=== PATIENT | female | born 1975 | race Caucasian/White ===

== ENCOUNTER 2016-12-15 10:28 | Emergency (ER) | payer BC ==
[2016-12-15 10:36] VITALS: BP 103/59
--- NOTE | 2016-12-15 11:30 | UC ---
Yo Mortensen Rebecca, scribed for Cony Cunningham MD on 12/15/16 at 1039 . Abdominal Pain Female HPI - HPI Summary HPI Summary: Pt is a 41 y/o F who presents to [facility] c/o LUQ abdominal pain without radiation. Pain began last night while she was sleeping, unsure of the exact time. Pain has been intermittent since onset, lasting a minute or less per episode. Today, sx seem to be occurring less frequently. Pain is currently not present, though when present it is characterized as a sharp, severe pain. Sx aggravated by movement, alleviated by pressure. When she takes a deep breath it feels similar to "when your muscles are sore from exercising" but does not cause sx. Additionally c/o nausea (yesterday) and being "gassy" last night. No recent physical activity or strain. Last BM yesterday which was normal. LNMP 3 weeks ago. PMHx GERD - takes Pepcid. FHx hiatal hernia (father), diverticulitis (grandfather), appendix on the wrong side (father). Decreased appetite yesterday, took the bus home from [facility]. Travelling to [place] tomorrow; concerned about long drive at this time. - History of Current Complaint Chief Complaint: UCAbdominalPain Stated Complaint: ABD PAIN Time Seen by Provider: 12/15/16 10:37 Hx Obtained From: Patient Hx Last Menstrual Period: 11/30/16 Onset/Duration: Lasting Hours - Began last night Timing: Intermittent Episodes Lasting: - A minute or less Severity Initially: Severe Severity Currently: None Pain Intensity: 0 Pain Scale Used: 0-10 Numeric Location: Discrete At: LUQ Radiates: No Character: Sharp Aggravating Factor(s): Movement Alleviating Factor(s): Other: - Pressure Associated Signs and Symptoms: Positive: Nausea - yesterday, Other: - "gassy" - Risk Factors Ectopic Risk Factor: Negative Ovarian Torsion Risk Factor: Reproductive Age Allergies/Adverse Reactions: Allergies Allergy/AdvReac Type Severity Reaction Status Date / Time Phenytoin [From Dilantin] Allergy Hallucinati Verified 04/19/14 14:27 ons Tetracycline Allergy Palpitation Verified 04/19/14 14:27 s PMH/Surg Hx/FS Hx/Imm Hx Previously Healthy: No GI/ History: Gastroesophageal Reflux Psychological History: Anxiety, Depression - Surgical History Surgical History: Yes Surgery Procedure, Year, and Place: pyloidal cyst,cone biopsy,tonsils - Family History Known Family History: Positive: Hypertension - mother, Other Family History: Hiatal hernia (father), diverticulitis (grandfather), appendix on the wrong side (father) - Social History Alcohol Use: Occasionally Substance Use Type: None Smoking Status (MU): Never Smoked Tobacco Have You Smoked in the Last Year: No - Immunization History Most Recent Influenza Vaccination: RECIEVED THIS SEASON Most Recent Tetanus Shot: 02/03/14 Most Recent Pneumonia Vaccination: N/A Review of Systems Constitutional: Negative Skin: Negative Eyes: Negative ENT: Negative Respiratory: Negative Cardiovascular: Negative Gastrointestinal: Abdominal Pain - LUQ, Nausea, Other - "gassy" Genitourinary: Negative - no hx of stones, no symptoms associated with urine passage. Motor: Negative Neurovascular: Negative Musculoskeletal: Negative - no injuries or activity to cause pain. Neurological: Negative Psychological: Negative All Other Systems Reviewed And Are Negative: Yes Physical Exam Triage Information Reviewed: Yes Appearance: Ill-Appearing - Looks fatigued., Pain Distress - mild. Vital Signs: Initial Vital Signs Temp 98 F 12/15/16 10:33 Pulse 90 12/15/16 10:33 Resp 17 12/15/16 10:33 BP 103/59 12/15/16 10:33 Pulse Ox 100 12/15/16 10:33 Vital Signs Reviewed: Yes ENT: Positive: Pharynx normal Neck: Positive: Supple, Nontender, No Lymphadenopathy Respiratory: Positive: Lungs clear, Normal breath sounds Cardiovascular: Positive: RRR, No Murmur Abdomen Description: Positive: No Organomegaly, Soft, Other: - very mild tenderness with deep palpation of the left flank, no guarding and no rebound. No pain with twisting, forward bend--could not precipitate pain. No tenderness along rib margin.. Negative: CVA Tenderness (R), CVA Tenderness (L), Splenomegaly Bowel Sounds: Positive: Present Musculoskeletal Exam: Normal Neurological Exam: Normal Neurological: Positive: Alert Psychological Exam: Normal Skin Exam: Normal Diagnostics - Laboratory Diagnostic Studies Completed/Ordered: UA negative except for trace protein. Abd Pain Female Course/Dx - Course Course Of Treatment: ibuprofen, observation, ER if worsens. - Differential Dx/Diagnosis Provider Diagnoses: left flank pain NYD Discharge - Discharge Plan Condition: Stable Disposition: HOME Patient Education Materials: Flank Pain (ED) Additional Instructions: The pain you are experiencing seems most in keeping with musculoskeletal pain. There is a small chance that it could be a kidney stone, but the pain is somewhat atypical in location and quality. I suggest taking advil 600mg, ensuring good intake of fluids, and monitoring. If the pain increases or persists, I suggest evaluation in the emergency room where imaging would be available for assessment. The documentation as recorded by the Yo gonzalez Rebecca accurately reflects the service I personally performed and the decisions made by me, Cony Cunningham MD.
== END 2016-12-15 11:41 | disposition home or self-care (01) ==
LOC: UCEAST 10:28
DX: R10.9 Unspecified abdominal pain (principal)
CPT/HCPCS: 81003; 99211; G0463

== ENCOUNTER 2018-05-23 22:12 | Emergency (ER) | payer BC ==
--- NOTE | 2018-05-23 22:46 | ED ---
HPI Chest Pain - HPI Summary HPI Summary: A 42 y/o female presents to the ED c/o right sided chest pain (right below nipple). According to the patient, she started experiencing chest pain since . She stated that she was laying down trying to go to bed at the time. The patient stated that the pain went away when she switched onto the stretcher as she felt some pop. She noted that she had SOB and dizziness with the chest pain, but denies any cough or fever. Patient takes Zoloft for anxiety. - History of Current Complaint Chief Complaint: EDChestPainROMI Time Seen by Provider: 05/23/18 22:22 Hx Obtained From: Patient Hx Last Menstrual Period: 11/30/16 Onset/Duration: Started Minutes Ago, Still Present Timing: Constant Current Severity: None Pain Intensity: 0 Pain Scale Used: 0-10 Numeric Chest Pain Location: Right Anterior Chest Pain Radiates: No Aggravating Factor(s): Nothing Alleviating Factor(s): Nothing Associated Signs and Symptoms: Positive: Chest Pain, Dizziness, Shortness of Breath. Negative: Fever, Cough - Allergy/Home Medications Allergies/Adverse Reactions: Allergies Allergy/AdvReac Type Severity Reaction Status Date / Time MS Phenytoin [From Dilantin] Allergy Hallucinati Verified 04/19/14 14:27 ons MS Tetracycline Allergy Palpitation Verified 04/19/14 14:27 [Tetracycline] s PMH/Surg Hx/FS Hx/Imm Hx Endocrine/Hematology History: Denies: Hx Diabetes Psychiatric History: Reports: Hx Anxiety - Zoloft 25mg - Surgical History Surgery Procedure, Year, and Place: pyloidal cyst,cone biopsy,tonsils Infectious Disease History: No Infectious Disease History: Denies: Hx Clostridium Difficile, Hx Hepatitis, Hx Human Immunodeficiency Virus (HIV), Hx of Known/Suspected MRSA, Hx Shingles, Hx Tuberculosis, Hx Known/ Suspected VRE, Hx Known/Suspected VRSA, History Other Infectious Disease, Traveled Outside the [place] in Last 30 Days - Family History Known Family History: Positive: Hypertension - mother, Other Family History: Hiatal hernia (father), diverticulitis (grandfather), appendix on the wrong side (father) - Social History Alcohol Use: Occasionally Alcohol Amount: social prior to Substance Use Type: Reports: None Smoking Status (MU): Never Smoked Tobacco Have You Smoked in the Last Year: No Review of Systems Negative: Fever Positive: Chest Pain Positive: Shortness Of Breath. Negative: Cough Neurological: Other - POSITIVE: DIZZINESS All Other Systems Reviewed And Are Negative: Yes Physical Exam - Summary Physical Exam Summary: VITAL SIGNS: Reviewed. GENERAL: Patient is a well-developed and nourished female who is lying comfortable in the stretcher. Patient is not in any acute respiratory distress. HEAD AND FACE: No signs of trauma. No ecchymosis, hematomas or skull depressions. No sinus tenderness. EYES: PERRLA, EOMI x 2, No injected conjunctiva, no nystagmus. EARS: Hearing grossly intact. Ear canals and tympanic membranes are within normal limits. MOUTH: Oropharynx within normal limits. NECK: Supple, trachea is midline, no adenopathy, no JVD, no carotid bruit, no c- spine tenderness, neck with full ROM. CHEST: Symmetric, no tenderness at palpation LUNGS: Clear to auscultation bilaterally. No wheezing or crackles. CVS: Regular rate and rhythm, S1 and S2 present, no murmurs or gallops appreciated. ABDOMEN: Soft, non-tender. No signs of distention. No rebound no guarding, and no masses palpated. Bowel sounds are normal. EXTREMITIES: FROM in all major joints, no edema, no cyanosis or clubbing. NEURO: Alert and oriented x 3. No acute neurological deficits. Speech is normal and follows commands. SKIN: Dry and warm Triage Information Reviewed: Yes Vital Signs On Initial Exam: Initial Vitals Temp Pulse Resp BP Pulse Ox 99.5 F 69 18 100/64 98 05/23/18 22:13 05/23/18 22:13 05/23/18 22:13 05/23/18 22:13 05/23/18 22:13 Vital Signs Reviewed: Yes Diagnostics - Vital Signs Vital Signs Temp Pulse Resp BP Pulse Ox 05/23/18 22:18 65 100/64 97 05/23/18 22:17 68 98 05/23/18 22:13 99.5 F 69 18 100/64 98 - Laboratory Result Diagrams: 05/23/18 21:47 05/23/18 21:47 Lab Statement: Any lab studies that have been ordered have been reviewed, and results considered in the medical decision making process. - Radiology CXR Radiology Interpretation Completed By: Radiologist Summary of Radiographic Findings: No acute process. Pending official report. - EKG 2223 Cardiac Rate: NL - 66 BPM EKG Rhythm: Sinus Rhythm - 66 BPM Summary of EKG Findings: normal axis, normal intervals, no ischemic changes. Chest Pain Course/Dx - Course Course Of Treatment: A 42 y/o female presents to the ED c/o right sided chest pain (right below nipple). Physical examination was unremarkable. A CXR revealed no acute process. An EKG revealed NSR of 66 BPM, normal axis, normal intervals, no ischemic changes. No significant laboratory abnormalities were found. In the ED course, the patient received no medications. Patient will be discharged with a diagnosis of chest wall pain. Patient is to follow up with primary care provider in 1-2 days. Patient is to return to ED for any new or worsening symptoms. Patient is agreeable with this plan. - Diagnoses Provider Diagnoses: Chest wall pain Discharge - Sign-Out/Discharge Documenting (check all that apply): Patient Departure - DISCHARGE - Discharge Plan Condition: Stable Disposition: HOME Patient Education Materials: Chest Wall Pain (ED) Referrals: Wernre Walker MD [Primary Care Provider] - 2 Days Additional Instructions: FOLLOW UP WITH PRIMARY CARE PROVIDER IN 1-2 DAYS. RETURN TO ED FOR ANY NEW OR WORSENING SYMPTOMS. - Attestation Statements Document Initiated by Scribe: Yes Documenting Scribe: Andi Gleason Provider For Whom Ramesh is Documenting (Include Credential): Roel Hernandez MD Scribe Attestation: Andi Mortensen, scribed for Roel Hernandez MD on 05/23/18 at 2322. Status of Scribe Document: Ready
[2018-05-23 22:48] LABS: ABS Basophils 0 10^3/ul (0-0.2); ABS Eosinophils 0 10^3/ul (0-0.6); ABS Lymphocytes 2.2 10^3/ul (1.0-4.8); ABS Monocytes 0.4 10^3/ul (0-0.8); ABS Neutrophils 3.6 10^3/ul (1.5-7.7); ABS Nucleated RBC 0 10^3/ul; Eosinophil % 0.7 %; Hematocrit 36 % (35-47); Hemoglobin 12.3 g/dl (12.0-16.0); Lymphocyte % 35.8 %; Mean Corpuscular HGB Conc 34 g/dl (31-36); Mean Corpuscular Hemoglobin 29 pg (27-31); Mean Corpuscular Volume 84 fL (80-97); Mean Platelet Volume 8.4 fL (7.4-10.4); Nucleated Red Blood Cells % 0; Platelet Count 209 10^3/ul (150-450); Red Blood Count 4.25 10^6/ul (4.00-5.40); Red Cell Distribution Width 13 % (10.5-15); White Blood Count 6.3 10^3/ul (3.5-10.8)
[2018-05-23 22:55] LABS: Activated Partial Thrombo Time 33.9 seconds (26.0-36.3)
[2018-05-23 23:04] LABS: ALT 7 U/L (7-52); AST 10 U/L (13-39); Albumin 3.9 g/dL (3.2-5.2); Albumin/Globulin Ratio 1.7 (1-3); Alkaline Phosphatase 48 U/L (34-104); Anion Gap 5 mmol/L (2-11); BUN/Creatinine Ratio 22.1 (8-20); Blood Urea Nitrogen 15 mg/dL (6-24); CO2 Carbon Dioxide 26 mmol/L (22-32); Calcium 8.8 mg/dL (8.6-10.3); Chloride 106 mmol/L (101-111); EGFR African American 115.4 (>60); EGFR Non-African American 95.4 (>60); Globulin 2.3 g/dL (2-4); Glucose 131 mg/dL (70-100); Magnesium 1.9 mg/dL (1.9-2.7); Potassium 3.7 mmol/L (3.5-5.0); Sodium 137 mmol/L (135-145); Total Protein 6.2 g/dL (6.4-8.9)
[2018-05-23 23:11] LABS: HCG Pregnancy < 0.60 mIU/mL
[2018-05-23 23:45] VITALS: BP 99/67
== END 2018-05-23 23:46 | disposition home or self-care (01) ==
LOC: ED 22:12
DX: R07.89 Other chest pain (principal); R42 Dizziness and giddiness; R06.02 Shortness of breath
CPT/HCPCS: 36415; 71045; 80053; 83735; 84484; 84702; 85025; 85379; 85610; 85730; 93005; 99283